=== PATIENT | female | born 1990 | race Two or more races ===

== ENCOUNTER → 2017-01-28 | Outpatient (CLI) | payer MEDICAID ==
--- NOTE | 2017-01-29 19:00 | RADRPT ---
Vent Rate: 89 bpm RR Interval: 0 msec CA Interval: 148 msec QRS Duration: 82 msec QT Interval: 370 msec QTC Interval: 450 msec P-R-T [place]: 57 - 70 - 60 degrees Normal sinus rhythm with sinus arrhythmia Normal ECG Electronically Signed By: Kit Frazier [id number]
== END | disposition home or self-care (01) ==
LOC: EKG 11:34
PROVIDERS: ATTEND Obstetrics & Gynecology
DX: R00.0 Tachycardia, unspecified (principal)
CPT/HCPCS: 93005